=== PATIENT | male | born 1970 | race Hispanic/Latino ===

== ENCOUNTER 2019-06-08 09:48 | Outpatient (CLI) | payer OTHER ==
--- NOTE | 2019-06-08 12:04 | CT ---
CT ABDOMEN AND PELVIS WITH ORAL AND IV CONTRAST: Date: 06/08/2019 HISTORY: Neoplasm of right kidney. Right kidney was removed for renal cancer. COMPARISON: None. FINDINGS: The lung bases are clear. No calcified gallstones are seen. The liver, spleen, pancreas, adrenal glan ds, and left kidney are normal. The patient is status post right nephrectomy. No free air, free fluid, or lymphadenopathy seen in the abdomen or pelvis. There are vascular calcifi cations without evidence of aneurysmal dilatation of the abdominal aorta. The small bowel loops are n ot abnormally dilated. A normal appearing appendix is present. There are small bilateral fat-containi ng inguinal herniae. No osteolytic or osteoblastic lesions are seen. There is colonic diverticulosis. IMPRESSION: No evidence of tumor recurrence or metastatic disease. POS: [facility]
[2019-06-08] MEDS ORDERED: Iopamidol 370 76% 50 ML VIAL FS ONE (14:58)
[2019-06-08] MEDS ORDERED: Iopamidol-370 76% 500 ML 1 ML ONE ×2 (14:58)
== END 2019-06-08 09:49 | disposition home or self-care (01) ==
LOC: BICCT 09:48
DX: C64.1 Malignant neoplasm of right kidney, except renal pelvis (principal)
CPT/HCPCS: 74177; Q9967

== ENCOUNTER 2019-12-23 09:02 | Outpatient (CLI) | payer OTHER ==
--- NOTE | 2019-12-23 10:11 | CT ---
CT Abdomen Pelvis W Con: 12/23/2019 12:00 AM CLINICAL INFORMATION: History of renal cell carcinoma status post right nephrectomy COMPARISON: 06/08/2019 TECHNIQUE: Multiple contiguous axial images were obtained and a CT of the abdomen and pelvis with IV contrast. Oral contrast was administered. Coronal and sagittal reformats were performed. FINDINGS: Lower Chest: within normal limits. Abdomen: Liver: within normal limits. Bile Ducts: Normal caliber. Gallbladder: No calcified gallstones. Normal caliber wall. Pancreas: within normal limits. Spleen: within normal limits. Adrenals: within normal limits. Kidneys: Status post right nephrectomy. No left renal abnormality. Pelvis: Reproductive Organs: No pelvic masses. Ureters: within normal limits. Bladder: within normal limits. Peritoneum: No ascites or free air, no fluid collection. Bowel: Normal caliber. Normal appendix. There is few scattered diverticula in the colon. Mesentery and Retroperitoneum: No enlarged mesenteric or retroperitoneal lymph nodes. Vessels: Normal. Abdominal Wall: Skin thickening/stranding is seen in the lower abdominal wall which is nonspecific. Bones: Within normal limits IMPRESSION: 1. No evidence of recurrent or metastatic disease 2. Diverticulosis
== END 2019-12-23 09:03 | disposition home or self-care (01) ==
LOC: SCSCT 09:02
DX: C64.1 Malignant neoplasm of right kidney, except renal pelvis (principal); D41.01 Neoplasm of uncertain behavior of right kidney; K57.30 Diverticulosis of large intestine without perforation or abscess without bleeding
CPT/HCPCS: 74177; 82565

== ENCOUNTER 2020-08-23 08:35 | Outpatient (CLI) | payer OTHER | END 2020-08-23 08:36 | disposition home or self-care (01) | LOC: BICRAD 08:35 | PROVIDERS: ATTEND Internal Medicine Infectious Disease | DX: M86.9 Osteomyelitis, unspecified (principal) ==

== ENCOUNTER 2020-10-05 15:16 | Outpatient (CLI) | payer OTHER | END 2020-10-05 15:17 | disposition home or self-care (01) | LOC: BICRAD 15:16 | PROVIDERS: ATTEND Nurse Practitioner Family | DX: E11.621 Type 2 diabetes mellitus with foot ulcer (principal); L97.519 Non-pressure chronic ulcer of other part of right foot with unspecified severity; L03.115 Cellulitis of right lower limb ==

== ENCOUNTER 2020-10-18 07:17 | Outpatient (CLI) | payer OTHER ==
[2020-10-18] MEDS ORDERED: Magnevist 469MG/ML 20 ML VIAL ONE (09:08)
== END 2020-10-18 07:18 | disposition home or self-care (01) ==
LOC: BICMRI 07:17
PROVIDERS: ATTEND Nurse Practitioner Family
DX: E11.621 Type 2 diabetes mellitus with foot ulcer (principal); L97.519 Non-pressure chronic ulcer of other part of right foot with unspecified severity
CPT/HCPCS: A9579

== ENCOUNTER 2021-02-16 19:46 | Inpatient (IN) | payer OTHER ==
[~2021-02-16 19:46] MED LIST: Iopamidol-370 76% 500 ML 1 ML ONE
[2021-02-16] MEDS ORDERED: Ondansetron PF 4 MG/2 ML Vial ONE (20:21)
[2021-02-16] MEDS ORDERED: Aspirin Chewable 81 MG TAB ONE (20:37)
[2021-02-16 20:40] LABS: ALT (SGPT) 37 U/L (8-55); AST (SGOT) 53 U/L (5-34); Albumin 4.4 g/dL (3.5-5.0); Alkaline Phosphatase 137 U/L (40-110); Anion Gap 18 mmol/L (10-20); BUN (Urea Nitrogen) 9 mg/dL (8.4-25.7); Bilirubin, Total 0.7 mg/dL (0.2-1.2); Calc. Creatinine Clearance 0 mL/min (70-130); Calcium 9.8 mg/dL (7.8-10.44); Carbon Dioxide 21 mmol/L (22-29); Chloride 96 mmol/L (98-107); Globulin 4.4 g/dL (2.4-3.5); Glucose 116 mg/dL (70-105); Potassium 4.1 mmol/L (3.5-5.1); Protein, Total 8.8 g/dL (6.0-8.3); Sodium 131 mmol/L (136-145)
[2021-02-16 20:43] LABS: Hemoglobin 16.2 g/dL (14.0-18.0); Mean Corpuscular HGB CONC 34.4 g/dL (32.0-36.0); Mean Corpuscular Hemoglobin 34.6 pg (27.0-31.0); Mean Platelet Volume 6.1 fL (7.4-10.4); Platelet Count 314 thou/uL (130-400); RBC Distribution Width 12.4 % (11.5-14.5); Red Blood Cell (RBC) Count 4.68 mill/uL (4.70-6.10); White Blood Cell (WBC) Count 8.5 thou/uL (4.8-10.8)
[2021-02-16 20:48] LABS: #Basophils 0.1 thou/uL (0.0-0.2); #Eosinphils 0.1 thou/uL (0.0-0.7); #Lymphocytes 2.2 thou/uL (1.20-3.40); #Monocytes 0.6 thou/uL (0.11-0.59); #Neutrophils 5.5 thou/uL (1.40-6.50); %Basophils 0.8 % (0.0-1.0); %Eosinophils 1.7 % (0.0-10.0); %Lymphocytes 26.1 % (21.0-51.0); %Monocytes 7.1 % (0.0-10.0); %Neutrophils 64.5 % (42.0-75.0); RBC Morphology Normal
[2021-02-16] MEDS ORDERED: Nitroglycerin 2% Ointment 1 INCH/1 GM Packet ONE (22:03)
[2021-02-16] MEDS ORDERED: Acetaminophen 500 MG TAB ONE (22:15)
[2021-02-16 23:38] LABS: SARS-CoV-2 NAA Rapid Test Not Detected (NotDetected)
[2021-02-16] MEDS: Ondansetron PF 4 MG/2 ML Vial IVP PRN (23:51)
[2021-02-17 00:45] VITALS: BMI 31.6
[2021-02-17] MEDS ORDERED: Senokot S 8.6-50 MG TAB PO PRN (02:21)
[2021-02-17] MEDS ORDERED: HYDROcodone/Acetaminophen 7.5/325 mg Tablet PO PRN (02:21)
[2021-02-17] MEDS ORDERED: Acetaminophen 325 MG TAB PO PRN (02:21)
[2021-02-17] MEDS ORDERED: HYDROcodone/Acetaminophen 5/325 mg Tablet PO PRN (02:21)
[2021-02-17] MEDS ORDERED: hydrALAZINE 20 MG/ML VIAL SLOW IVP PRN (02:26)
[2021-02-17] MEDS ORDERED: Nitroglycerin 0.4 MG TAB (25 Tab Bottle) SL PRN (02:28)
[2021-02-17] MEDS ORDERED: Enoxaparin Sodium 40 MG/0.4 ML SYRINGE SC SCH (02:45)
[2021-02-17] MEDS ORDERED: Benzonatate 100 MG CAP PO PRN (02:49)
[2021-02-17] MEDS ORDERED: Dextrose 50% Abboject 50 ML SYRINGE SLOW IVP PRN (02:55)
[2021-02-17] MEDS ORDERED: HumaLOG 300 UNITS/3 ML VIAL SC PRN (02:55)
[2021-02-17] MEDS ORDERED: Dextrose 5% in Water 1,000 ML IV PRN (02:55)
[2021-02-17 03:00] LABS: Troponin I 0.042 ng/mL (< 0.028)
[2021-02-17] MEDS: Melatonin 3 MG TAB PO PRN (03:03)
[2021-02-17] MEDS: Ondansetron PF 4 MG/2 ML Vial IVP PRN (03:03)
[2021-02-17 06:46] LABS: Hemoglobin A1c 6.5 % (4.0-6.0)
[2021-02-17] MEDS ORDERED: Hydrocerin (Eucerin) Cream 120 gm Jar TOP PRN (06:49)
[2021-02-17] MEDS ORDERED: Loratadine 10 MG TAB PO PRN (06:49)
[2021-02-17] MEDS ORDERED: Calcium Carbonate 500 MG ChewTAB PO PRN (06:49)
[2021-02-17] MEDS ORDERED: GUAIFENESIN SF SOLN 200 MG/10 ML UDCUP PO PRN (06:49)
[2021-02-17] MEDS ORDERED: Bisacodyl 5 MG TAB PO PRN (06:49)
[2021-02-17] MEDS ORDERED: Artificial Tear Sol 15 ML BOT EA EYE PRN (06:49)
[2021-02-17] MEDS ORDERED: Loperamide HCl 2 MG CAP PO PRN (06:49)
[2021-02-17] MEDS ORDERED: Sodium Chloride 0.65% Nasal 44 ML BOT EA NARE PRN (06:49)
[2021-02-17] MEDS ORDERED: Cepastat Lozenges 1 LOZ PO PRN (06:49)
[2021-02-17] MEDS ORDERED: Zolpidem Tartrate 5 MG TAB PO PRN (06:49)
[2021-02-17] MEDS ORDERED: Ondansetron ODT 4 MG TAB PO PRN (06:49)
[2021-02-17 06:50] LABS: #Eosinphils 0.2 thou/uL (0.0-0.7); #Lymphocytes 1.6 thou/uL (1.20-3.40); #Monocytes 0.6 thou/uL (0.11-0.59); #Neutrophils 3.2 thou/uL (1.40-6.50); %Basophils 0.8 % (0.0-1.0); %Eosinophils 3.2 % (0.0-10.0); %Lymphocytes 27.8 % (21.0-51.0); %Monocytes 11.3 % (0.0-10.0); %Neutrophils 56.9 % (42.0-75.0); Hemoglobin 13.5 g/dL (14.0-18.0); Mean Corpuscular HGB CONC 33.8 g/dL (32.0-36.0); Mean Corpuscular Hemoglobin 34.1 pg (27.0-31.0); Mean Platelet Volume 6.1 fL (7.4-10.4); Platelet Count 287 thou/uL (130-400); RBC Distribution Width 12.2 % (11.5-14.5); Red Blood Cell (RBC) Count 3.96 mill/uL (4.70-6.10); White Blood Cell (WBC) Count 5.6 thou/uL (4.8-10.8)
[2021-02-17 07:02] LABS: ALT (SGPT) 28 U/L (8-55); AST (SGOT) 41 U/L (5-34); Albumin 3.5 g/dL (3.5-5.0); Alkaline Phosphatase 109 U/L (40-110); Anion Gap 12 mmol/L (10-20); BUN (Urea Nitrogen) 10 mg/dL (8.4-25.7); Bilirubin, Total 0.8 mg/dL (0.2-1.2); Calc. Creatinine Clearance 108 mL/min (70-130); Calcium 8.7 mg/dL (7.8-10.44); Carbon Dioxide 23 mmol/L (22-29); Chloride 100 mmol/L (98-107); Cholesterol 187 mg/dl (< 200 Desired); Globulin 3.6 g/dL (2.4-3.5); Glucose 167 mg/dL (70-105); HDL Cholesterol 94 mg/dL (>60 Neg Risk); LDL Cholesterol, Calculated 80 mg/dL; Potassium 4.3 mmol/L (3.5-5.1); Protein, Total 7.1 g/dL (6.0-8.3); Sodium 131 mmol/L (136-145); Triglycerides 64 mg/dL (Less than 150)
[2021-02-17] MEDS: Famotidine/PF 20 mg/2ml Vial SLOW IVP SCH ×2 (08:24→20:45)
[2021-02-17] MEDS: Enoxaparin Sodium 40 MG/0.4 ML SYRINGE SC SCH (08:33)
[2021-02-17] MEDS: HumaLOG 300 UNITS/3 ML VIAL SC PRN (16:51)
[2021-02-17] MEDS ORDERED: Amlodipine 5 MG TAB PO SCH (21:00)
[2021-02-18] MEDS: Melatonin 3 MG TAB PO PRN ×2 (00:12→21:57)
[2021-02-18 04:35] LABS: #Basophils 0.1 thou/uL (0.0-0.2); #Eosinphils 0.3 thou/uL (0.0-0.7); #Lymphocytes 1.8 thou/uL (1.20-3.40); #Monocytes 0.7 thou/uL (0.11-0.59); #Neutrophils 3.4 thou/uL (1.40-6.50); %Eosinophils 4.3 % (0.0-10.0); %Lymphocytes 28.8 % (21.0-51.0); %Monocytes 11.3 % (0.0-10.0); %Neutrophils 54.7 % (42.0-75.0); Mean Corpuscular HGB CONC 33.7 g/dL (32.0-36.0); Mean Corpuscular Hemoglobin 34.3 pg (27.0-31.0); Mean Platelet Volume 6.4 fL (7.4-10.4); Platelet Count 241 thou/uL (130-400); RBC Distribution Width 12.4 % (11.5-14.5); Red Blood Cell (RBC) Count 4.08 mill/uL (4.70-6.10); White Blood Cell (WBC) Count 6.3 thou/uL (4.8-10.8)
[2021-02-18 04:55] LABS: ALT (SGPT) 27 U/L (8-55); AST (SGOT) 34 U/L (5-34); Albumin 3.4 g/dL (3.5-5.0); Alkaline Phosphatase 99 U/L (40-110); Anion Gap 12 mmol/L (10-20); BUN (Urea Nitrogen) 14 mg/dL (8.4-25.7); Bilirubin, Total 0.7 mg/dL (0.2-1.2); Calc. Creatinine Clearance 97 mL/min (70-130); Calcium 8.6 mg/dL (7.8-10.44); Carbon Dioxide 23 mmol/L (22-29); Chloride 100 mmol/L (98-107); Globulin 3.5 g/dL (2.4-3.5); Glucose 141 mg/dL (70-105); Protein, Total 6.9 g/dL (6.0-8.3); Sodium 131 mmol/L (136-145)
[2021-02-18] MEDS ORDERED: Hydrochlorothiazide 25 MG TAB PO SCH (09:00)
[2021-02-18] MEDS: Enoxaparin Sodium 40 MG/0.4 ML SYRINGE SC SCH (10:29)
[2021-02-18] MEDS: Amlodipine 5 MG TAB PO SCH (10:29)
[2021-02-18] MEDS: Famotidine/PF 20 mg/2ml Vial SLOW IVP SCH (10:29)
[2021-02-18] MEDS: Lantus 1000 UNITS/10 ML VIAL SC SCH (10:30)
[2021-02-18] MEDS ORDERED: Senokot S 8.6-50 MG TAB PO PRN (14:47)
[2021-02-18] MEDS ORDERED: Polyethylene Glycol 3350 17 GM Packet PO SCH (15:00)
[2021-02-18] MEDS: HumaLOG 300 UNITS/3 ML VIAL SC PRN (17:18)
[2021-02-18] MEDS: Carvedilol 25 MG TAB PO SCH (17:18)
[2021-02-19] MEDS: HumaLOG 300 UNITS/3 ML VIAL SC PRN ×2 (06:24→11:31)
[2021-02-19] MEDS: Carvedilol 25 MG TAB PO SCH (08:41)
[2021-02-19] MEDS: Lantus 1000 UNITS/10 ML VIAL SC SCH (08:42)
[2021-02-19] MEDS ORDERED: Polyethylene Glycol 3350 17 GM Packet PO PRN (09:00)
[2021-02-19] MEDS ORDERED: Cyclobenzaprine 10 MG TAB PO PRN (09:46)
[2021-02-19] MEDS: Amlodipine 5 MG TAB PO SCH (10:10)
[2021-02-19 11:49] VITALS: BP 129/60; TEMP 98.2
[2021-02-20] MEDS ORDERED: Losartan 25 MG TAB PO SCH (21:00)
== END 2021-02-19 12:20 | disposition home or self-care (01) | DRG 281 ==
LOC: ERS 19:46 → 2NO 22:21 → OBSVTOIN 02-18 10:25
PROVIDERS: ADMIT Internal Medicine; ATTEND Internal Medicine
DX: I16.0 Hypertensive urgency (principal); I21.A1 Myocardial infarction type 2; E87.1 Hypo-osmolality and hyponatremia; Z20.822 Contact with and (suspected) exposure to COVID-19; E11.22 Type 2 diabetes mellitus with diabetic chronic kidney disease; N18.30 Chronic kidney disease, stage 3 unspecified; Z96.41 Presence of insulin pump (external) (internal); I15.2 Hypertension secondary to endocrine disorders; I08.1 Rheumatic disorders of both mitral and tricuspid valves; R74.8 Abnormal levels of other serum enzymes; E66.9 Obesity, unspecified; Z68.31 Body mass index [BMI] 31.0-31.9, adult; Z90.5 Acquired absence of kidney; Z79.4 Long term (current) use of insulin; Z79.899 Other long term (current) drug therapy; Z89.421 Acquired absence of other right toe(s); Z86.16 Personal history of COVID-19
CPT/HCPCS: 0240U; 36415; 36416; 71045; 71275; 78452; 80053; 80061; 83036; 83690; 83880; 84443; 84484; 85025; 85379; 93005; 93010; 93017; 93306; 96372; 96374; 96375; 96376; A9500; G0378; J0153; J0360; J1650; J1815; J2405; Q0162; Q9967; S0028

== ENCOUNTER 2021-05-12 12:14 | Outpatient (CLI) | payer OTHER ==
[2021-05-12 14:23] LABS: #Basophils 0.1 10x3/uL (0.0-0.2); #Eosinphils 0.2 10x3/uL (0.0-0.5); #Monocytes 0.6 10x3/uL (0.0-1.1); #Neutrophils 3.3 10x3/uL (1.5-8.4); %Eosinophils 3.4 % (0.0-6.0); %Lymphocytes 32.1 % (18.0-47.0); %Monocytes 9.3 % (0.0-10.0); %Neutrophils 53.9 % (40.0-75.0); Hemoglobin 12.9 g/dL (13.5-17.5); Mean Corpuscular HGB CONC 34.8 g/dL (32.0-36.0); Mean Corpuscular Hemoglobin 33.3 pg (27.0-33.0); Mean Corpuscular Volume 95.9 fl (81.2-95.1); Mean Platelet Volume 9.2 fl (7.4-10.4); Platelet Count 230 10x3/uL (150-450); RBC Distribution Width 11.9 % (11.5-14.5); Red Blood Cell (RBC) Count 3.87 10x6/uL (4.32-5.72); White Blood Cell (WBC) Count 6.1 10x3/uL (3.5-10.5)
[2021-05-12 14:54] LABS: ALT (SGPT) 35 U/L (8-55); AST (SGOT) 52 U/L (5-34); Albumin 3.8 g/dL (3.5-5.0); Alkaline Phosphatase 85 U/L (40-110); Anion Gap 13 mmol/L (10-20); BUN (Urea Nitrogen) 21 mg/dL (8.4-25.7); Bilirubin, Total 0.9 mg/dL (0.2-1.2); Calc. Creatinine Clearance 0 mL/min (70-130); Calcium 8.3 mg/dL (7.8-10.44); Carbon Dioxide 22 mmol/L (22-29); Chloride 102 mmol/L (98-107); Globulin 3.4 g/dL (2.4-3.5); Glucose 145 mg/dL (70-105); Potassium 4.6 mmol/L (3.5-5.1); Protein, Total 7.2 g/dL (6.0-8.3); Sodium 132 mmol/L (136-145)
[2021-05-13 14:13] LABS: SARS-CoV-2 PCR by NAA Not Detected (NotDetected)
== END 2021-05-12 12:15 | disposition home or self-care (01) ==
LOC: LABBT 12:14
PROVIDERS: ATTEND Internal Medicine Cardiovascular Disease
DX: Z01.812 Encounter for preprocedural laboratory examination (principal); Z20.822 Contact with and (suspected) exposure to COVID-19
CPT/HCPCS: 80053; 85025; U0003; U0005

== ENCOUNTER 2021-05-15 06:09 | Day surgery (SDC) | payer OTHER ==
[2021-05-12 10:03] VITALS: BMI 36.6
== END 2021-05-15 08:54 | disposition home or self-care (01) ==
LOC: CCL 06:09
PROVIDERS: ATTEND Internal Medicine Cardiovascular Disease
DX: R06.09 Other forms of dyspnea (principal); Z53.9 Procedure and treatment not carried out, unspecified reason; Z79.4 Long term (current) use of insulin; Z79.899 Other long term (current) drug therapy